=== PATIENT | female | born 1970 | race Caucasian/White ===

== ENCOUNTER → 2017-03-10 | Outpatient (CLI) | payer OTHER | LOC: FIMAGING 14:10 | PROVIDERS: ATTEND Otolaryngology | DX: R22.1 Localized swelling, mass and lump, neck (principal); E06.3 Autoimmune thyroiditis ==

== ENCOUNTER → 2018-02-28 | Outpatient (CLI) | payer OTHER | LOC: FIMAGING 09:26 | PROVIDERS: ATTEND Otolaryngology | DX: E03.4 Atrophy of thyroid (acquired) (principal); R22.1 Localized swelling, mass and lump, neck ==

== ENCOUNTER → 2018-07-20 | Outpatient (CLI) | payer OTHER | LOC: FIMAGING 09:43 ==

== ENCOUNTER → 2018-08-01 | Outpatient (CLI) | payer OTHER | LOC: FIMAGING 07:15 ==